=== PATIENT | female | born 1940 | race Caucasian/White ===

== ENCOUNTER 2019-03-19 09:54 | Inpatient (IN) ==
--- NOTE | 2019-02-14 10:15 | PAT Medication Instructions ---
Medication Instructions Date of Service February 14, 2019 Home Medications Medication Instructions Recorded sulfamethoxazole 800 1 tab PO DAILY 30 Days #30 tab 01/22/19 mg-trimethoprim 160 mg tablet albuterol sulfate 90 mcg/actuation 1 puffs INH Q4H PRN #1 ea 02/13/19 breath activated powder inhaler prednisone 10 mg tablet See Rx Instructions .ROUTE 02/13/19 .COMPLEX #21 tab triamcinolone acetonide 55 mcg nasal spray aerosol 2 sprays INTRANASAL DAILY cetirizine 10 mg capsule 10 mg PO HS PRN cyclosporine 0.05 % eye drops in a dropperette 1 drops OP Q12H glucosamine-chondroitin 250 mg-200 mg tablet 2 tab PO DAILY polyethylene glycol 3350 17 gram/dose oral powder 17 gm PO DAILY sulfamethoxazole 800 mg-trimethoprim 160 mg tablet 1 tab PO DAILY levothyroxine 25 mcg PO QAM albuterol sulfate 90 mcg/actuation breath activated powder inhaler 1 puffs INH Q4H PRN prednisone 10 mg tablet See Rx Instructions .ROUTE .COMPLEX Continue as directed sulfamethoxazole 800 mg-trimethoprim 160 mg tablet 1 tab PO DAILY prednisone 10 mg tablet See Rx Instructions .ROUTE .COMPLEX STOP taking 2 weeks before surgery (or as soon as possible if surgery is within 2 weeks) glucosamine-chondroitin 250 mg-200 mg tablet 2 tab PO DAILY DO NOT take the morning of surgery polyethylene glycol 3350 17 gram/dose oral powder 17 gm PO DAILY Take morning of surgery With a small sip of water, OTHERWISE NOTHING TO EAT OR DRINK AFTER MIDNIGHT: triamcinolone acetonide 55 mcg nasal spray aerosol 2 sprays INTRANASAL DAILY cyclosporine 0.05 % eye drops in a dropperette 1 drops OP Q12H levothyroxine 25 mcg PO QAM albuterol sulfate 90 mcg/actuation breath activated powder inhaler 1 puffs INH Q4H PRN (if needed) Take evening before surgery triamcinolone acetonide 55 mcg nasal spray aerosol 2 sprays INTRANASAL DAILY cetirizine 10 mg capsule 10 mg PO HS PRN (if needed) cyclosporine 0.05 % eye drops in a dropperette 1 drops OP Q12H albuterol sulfate 90 mcg/actuation breath activated powder inhaler 1 puffs INH Q4H PRN (if needed) Other Notes If you have any questions please call us at [phone] or [phone] or [phone] or [phone]
--- NOTE | 2019-02-14 11:15 | Anesthesiology Consultation ---
Date of Service February 14, 2019 Assessment & Plan (1) Encounter for pre-operative examination: PCP: 02/13/19: viral bronchitis- treating with prednisone taper/bactrim/inhaler PRN. Patient having CXR done with preop testing ([facility] 02/14). Chart Review Chart Review: Pending: Refer to Additional Notes / Consult section (pending preop testing (labs, CXR)) and Patient seen in Pre Admission Testing Teaching & Discussion Pre-Anesthesia Teaching/Discussion Notes: Instructed NPO after midnight before surgery,except medications with 15 cc of water. Medication instructions pr ovided according to the PAT guidelines. History Surgery Operation Date: 03/19/19 10:40 Proposed Procedures p Left Total Knee Arthroplasty - Austin Washington MD Height/Weight Height: 5 ft Weight: 59.9 kg Allergies Allergy/AdvReac Type Severity Reaction Status Date / Time mold Allergy Unknown STUFFY NOSE Verified 02/13/19 15:43 Penicillins Allergy Unknown Hives Verified 02/13/19 15:43 clarithromycin AdvReac Unknown GOT AWAKE Verified 02/14/19 11:25 DURING NIGHT, TERRIBLE TASTE IN MOUTH morphine AdvReac Unknown N/V Verified 02/13/19 15:43 tree and shrub pollen AdvReac Unknown STUFFY NOSE Verified 02/14/19 11:25 BANDAID Allergy Unknown SEE Uncoded 02/13/19 15:43 COMMENTS BELOW Medications Home Medications Medication Instructions Recorded Confirmed Last Taken triamcinolone acetonide 55 mcg 2 sprays INTRANASAL DAILY ml 01/17/19 02/13/19 Unknown nasal spray aerosol cetirizine 10 mg capsule 10 mg PO HS PRN cap 01/22/19 02/13/19 Unknown cyclosporine 0.05 % eye drops in a 1 drops OP Q12H 01/22/19 02/13/19 Unknown dropperette glucosamine-chondroitin 250 mg-200 2 tab PO DAILY tab 01/22/19 02/13/19 Unknown mg tablet polyethylene glycol 3350 17 17 gm PO DAILY gm 01/22/19 02/13/19 Unknown gram/dose oral powder sulfamethoxazole 800 1 tab PO DAILY 30 Days #30 tab 01/22/19 02/13/19 Unknown mg-trimethoprim 160 mg tablet levothyroxine 25 mcg PO QAM 02/11/19 02/13/19 02/11/19 albuterol sulfate 90 mcg/actuation 1 puffs INH Q4H PRN #1 ea 02/13/19 02/13/19 Unknown breath activated powder inhaler prednisone 10 mg tablet See Rx Instructions .ROUTE 02/13/19 02/13/19 Unknown .COMPLEX #21 tab Past Medical History Medical History Balance problem since left ear hearing loss Borderline high cholesterol Constipation Deaf left ear, transmitter History of UTI Recurrent UTI- symptoms resolved; patient on prophylactic Bactrim Hypothyroid Kidney stone Lichen planus HX Prolapse of bladder Vertigo occasional since left ear hearing loss Exercise / Class Metabolic Activity III < 4 Walking/Shop/Light housework Past Family History Family History Father Family history of diabetes mellitus (DM) Grandmother Family history of diabetes mellitus (DM) Past Surgical History Surgical History History of colonoscopy with polypectomy History of hand surgery LEFT HAND TRIGGER FINGER, CYST REMOVED RIGHT MIDDLE FINGER History of tonsillectomy History of vaginal hysterectomy History of vascular surgery LLE VEIN STRIPPING/REMOVAL Past Anesthesia History No Hx of Anesthesia Complications and No Family Hx of Anesthesia Complications History of PONV No Hx of PONV and No Hx of Motion Sickness Social History Smoking Status: Never smoker Do You Dip or Chew Tobacco: No Hx Alcohol Use: Yes Alcohol type: wine alcohol intake frequency: other Alcohol Intake Frequency Comment: ONCE A WEEK WITH DINNER Hx Substance Use: No substance use type: does not use Review of Systems Current bronchitis with coughing improved. Patient denies chest pain, shortness of breath, wheezing, palpitations. Physical Exam Vital Signs VITALS BP 117/72 P 69 TEMP 98.3 SP02 96%RA RESP 18 PHYSICAL Full neck and c-spine range of motion. Full TMJ range of motion. TMD 3 finger breaths Mallampati Score 3 Dentition: intact Lungs: clear throughout to auscultation Cardiac: regular rate and rhythm, no murmurs noted Spine: normal Carotid arteries: negative bruit Extremities: no edema Testing Laboratory Results 01/22/19 WBC 5.72 H/H 12.4/37.9 PLATELETS 309 SODIUM 142 POTASSIUM 3.9 CHLORIDE 106 CO2 32 BUN 18 CREATININE 0.9 GLUCOSE 83 Electrocardiogram Date: 01/22/19 SR at 65bpm.
--- NOTE | 2019-02-14 12:13 | XRay Report ---
XR chest Pre-admission PA/Lat CLINICAL HISTORY: 78 years-old Female presenting with preoperative assessment, recent diagnosis of br onchitis. TECHNIQUE: PA and lateral views of the chest were obtained. COMPARISON: None. FINDINGS: Atherosclerosis of the aortic arch. Cardiac silhouette normal in size. Lungs are hyperinflated. No fo tete opacity. No pleural effusion or pneumothorax. Degenerative changes of the thoracic spine. Upper a bdomen normal. IMPRESSION: 1. Hyperinflation could suggest underlying emphysema or other chronic obstructive lung disease versu s exuberant inspiratory effort. No focal infiltrate to suggest pneumonia. Electronically signed by: Demetrio Gardner M.D. 02/14/2019 12:12 PM
[2019-02-14 13:25] LABS: Partial Thromboplastin Ratio 1.1; Prothrombin Time 9.8 Seconds (9.0-12.0)
--- NOTE | 2019-03-17 15:52 | History and Physical Report ---
DATE OF ADMISSION: 03/19/2019 CHIEF COMPLAINT: Bilateral knee pain and discomfort, left side greater than the right. HISTORY OF PRESENT ILLNESS: A 78-year-old female who I have been following for her knee arthritis for about 10 years. She has become more debilitated by her knee pain and discomfort. She has had episodes where it catches and locks on her and she has difficulty walking for quite some time. She has been through extensive conservative treatment in the past 10-15 years with injections and medicines which have become less successful. Pain is mostly medial, but some global pain. The left knee bothers more than the right. She has nighttime pain. She would like to have her left knee replaced. PAST MEDICAL HISTORY: 1. Elevated cholesterol. 2. Hypothyroidism. 3. Osteoarthritis. 4. Gastroesophageal reflux disease. 5. Hiatal hernia. 6. Kidney stones. PAST SURGICAL HISTORY: Include: 1. Hysterectomy. 2. Tonsillectomy. 3. Left vein surgery. ALLERGIES: PENICILLIN WHICH CAUSES HIVES. No respiratory problems. ALSO DESCRIBES ALLERGIES TO MORPHINE, WHICH CAUSES NAUSEA. CURRENT MEDICINES: Include: 1. Levothyroxine 25 mcg a day. 2. Restasis. 3. Bactrim for her UTI. 4. Plaquenil 200 mg twice a day. SOCIAL HISTORY: A 78-year-old female. She is from [place]. She does not smoke. 3-4 drinks per week. FAMILY HISTORY: Noncontributory. REVIEW OF HISTORY: Negative for diabetes, neurologic problems, vascular problems or bleeding disorders. Denies any chest pain or shortness of breath. No history of DVT or PE. No known bleeding problems. PHYSICAL EXAMINATION: GENERAL: Shows a healthy, pleasant middle-aged female. Looks younger than her stated age. HEENT: Benign. NECK: Supple, no lymphadenopathy. LUNGS: Clear to auscultation. HEART: Has a regular rate and rhythm. ABDOMEN: Soft, nontender, nondistended. EXTREMITIES: Grossly neurovascularly intact except as follows: Examination of the knee reveals patient walks independently. She has a fairly minimal limp. She has got fairly neutral slight varus alignment to her left knee. She has got bony hypertrophy medially. She is tender over the medial joint line. Small knee effusion. Range of motion is 5 degrees short of full extension to 125 degrees of flexion. There is no clinical instability. No pain with hip motion. X-RAYS: Left knee reviewed. Shows advanced medial compartment arthritis. She has got complete loss of medial joint space. She has subchondral sclerosis. She has osteophytes off the medial femoral condyle and medial tibial plateau. ASSESSMENT: A 78-year-old female with advanced left knee degenerative joint disease. She has failed conservative treatment. She would like to proceed with a left knee replacement. PLAN: We will take her to the operating room and do a left total knee replacement. The risks and benefits of this procedure were explained to the patient and include but not limited to DVT, PE, , infection, neurological injury, vascular injury, bleeding problem, pain, limited range of motion, stiffness, failure to relieve her symptoms, incomplete relief of symptoms, need for further surgery in future, fracture, leg length inequality, nerve palsy, persistent pain, incomplete relief of symptoms, etc. The patient understands and desires to proceed. Informed consent was obtained. As far as discharge plans, she is planning to be discharged to home likely using [facility] home health program.
[~2019-03-19 09:54] MED LIST: ACETAMINOPHEN 500 MG TAB PO SCH; BUPIVACAINE 0.5 % 5 MG/1 ML PF 10ML VIAL ONE; BUPIVACAINE LIPOSOME/PF 266 MG, BUPIVACAINE/EPINEPHRINE 50 ML, SODIUM CHLORIDE 0.9% 30 ... INFIL SCH; CEFAZOLIN 2000MG 2,000 MG/15 ML SYR IV SCH; FAMOTIDINE 20 MG TAB PO SCH; GABAPENTIN 300 MG CAP PO SCH; LR 15ML/HR IV SCH; LR 60ML/HR IV SCH; METOCLOPRAMIDE HCL 10 MG TABLET PO SCH; ROPIVACAINE 0.5% 5 MG/ML 30 ML VIAL ONE; TRANEXAMIC ACID 1,000 MG **IV Intra-op IV SCH; [UNRECOGNIZED DRUG - REMARK] SCH
--- NOTE | 2019-03-19 10:42 | History & Physical Bridge Note ---
Date of Service March 19, 2019 History & Physical Bridge Note I have examined the patient, reviewed the History & Physical and in the interval since the performance of the History & Physical I have noted the following changes of clinical significance: Patient with Right Knee DJD as well and wants steroid injection into right knee while under anesthesia. Will add to consent and preform in OR.
[2019-03-19] MEDS ORDERED: SODIUM CHLORIDE 0.9% PF 50 ML VIAL ONE (12:05)
[2019-03-19] MEDS ORDERED: BUPIVACAINE/EPINEPHRINE 0.25% 1:200,000 30 ML VIAL ONE (12:05)
[2019-03-19] MEDS ORDERED: BUPIVACAINE LIPOSOME 1.3% 266 MG/20 ML VIAL ONE (12:06)
[2019-03-19] MEDS ORDERED: EPINEPHrine INJ 1 MG/ML AMP ONE (12:06)
[2019-03-19] MEDS ORDERED: BACITRACIN INJ 50,000 UNIT VIAL ONE (12:06)
[2019-03-19] MEDS ORDERED: BUPIVACAINE 0.25% 30 ML VIAL ONE (12:06)
[2019-03-19] MEDS ORDERED: MIDAZOLAM HCL 1 MG/ML 2ML VIAL ONE ×2 (12:17→13:03)
[2019-03-19] MEDS ORDERED: fentaNYL citrate 100 MCG/2 ML VIAL ONE (12:17)
[2019-03-19] MEDS ORDERED: BUPIVACAINE 0.5 % 5 MG/1 ML MPF 30ML VIAL ONE (12:35)
[2019-03-19] MEDS ORDERED: HYDROmorphone INJ 1 MG/ML SYRINGE IV PRN (13:00)
[2019-03-19] MEDS ORDERED: ATROPINE SULFATE 0.1 MG/ML 10ML SYR IV PRN (13:00)
[2019-03-19] MEDS ORDERED: ONDANSETRON INJ 2 MG/ML 2 ML VIAL IV PRN ×2 (13:00→15:28)
[2019-03-19] MEDS ORDERED: KETOROLAC 30 MG/ML VIAL IV PRN (13:00)
[2019-03-19] MEDS ORDERED: ePHEDrine sulfate 50 MG/ML AMP IV PRN (13:00)
[2019-03-19] MEDS ORDERED: PROPOFOL IV EMULSION 10 MG/ML 20 ML VIAL IV ONE (13:04)
[2019-03-19] MEDS ORDERED: PHENYLEPHRINE 100MCG/ML 5ML SYR ONE (14:30)
[2019-03-19] MEDS ORDERED: ePHEDrine sulfate 50 MG/ML SYR ONE (14:30)
--- NOTE | 2019-03-19 14:33 | Post Operative Brief Note ---
PG Immediate Post Op with CF Date of Surgery March 19, 2019 Pre & Post Diagnosis Operation Date: 03/19/19 12:30 Pre-Op Diagnosis: Bilateral Knee Degenerative Joint Disease Post-Op Diagnosis: Bilateral Knee Degenerative Joint Disease I identified the patient and participated in the time-out.: Yes Procedure Operation Date: 03/19/19 12:30 Actual Procedures p Left Total Knee Arthroplasty, Right Knee Injection(Left) - Austin Washington MD Surgeon Austin Washington MD Oil Expeller Isaiah, PAC Estimated Blood Loss 50 Findings Consistent with Post-Op Diagnosis Fluids 1500 cc Specimens Specimen Description: Permanent Solution: A.) Left Knee Bone and Tissue Drains Jose Catheter (patent; clean; dry; intact) Anesthesia Type Spinal MAC Complications none Disposition Accompanied Patient To Recovery: No Disposition: Recovery Room
--- NOTE | 2019-03-19 14:57 | XRay Report ---
XR knee LT 1 or 2V routine CLINICAL HISTORY: Surgical Post Op postoperative evaluation COMPARISON: None. DISCUSSION: Anatomic alignment posttotal left knee arthroplasty. Could contact between prosthetic and underlying bone. Expected postoperative soft tissue change IMPRESSION: Anatomic alignment posttotal left knee arthroplasty. The above report was generated using voice recognition software. It may contain grammatical, syntax or spelling errors. Electronically signed by: Karsten Duffy M.D. 03/19/2019 2:56 PM
--- NOTE | 2019-03-19 15:20 | Anesthesiology Progress Note ---
Date of Service March 19, 2019 Anesthesia Post Procedure Vital Signs Vital Signs: Temp Pulse Pulse Resp BP Pulse Ox 03/19/19 15:15 36.9 C 78 16 125/61 99 03/19/19 15:05 36.9 C 78 16 130/61 99 03/19/19 14:55 81 16 125/66 98 03/19/19 14:45 83 16 133/61 98 03/19/19 14:38 37.1 C 82 16 134/62 99 03/19/19 10:20 36.5 C 70 18 131/65 97 Pain Intensity Left Knee: Pain Intensity: 4 Transfer of Care Handoff Completed per policy Notes Mental Status: alert / awake / arousable and participated in evaluation Patient Amnestic to Procedure: Yes Nausea / Vomiting: adequately controlled Pain: adequately controlled Airway Patency, RR, SpO2: stable & adequate BP & HR: stable & adequate Hydration State: stable & adequate Neuraxial Anesthesia: was administered and sensory block is resolving Anesthetic Complications: no major complications apparent
[2019-03-19] MEDS ORDERED: HYDROmorphone INJ 0.5 MG/0.5 ML SYR IV PRN (15:28)
[2019-03-19] MEDS ORDERED: NALOXONE HCL 0.4 MG/1 ML VIAL/CARP IV PRN (15:28)
[2019-03-19] MEDS ORDERED: METOCLOPRAMIDE HCL INJ 5 MG/ML 2 ML VIAL IV PRN (15:28)
[2019-03-19] MEDS ORDERED: MAGNESIUM HYDROXIDE SUSP 30 ML UDC PO PRN (15:28)
[2019-03-19] MEDS ORDERED: CETIRIZINE HCL 10 MG TABLET PO PRN (15:28)
[2019-03-19] MEDS ORDERED: BISACODYL 10 MG SUPP PR PRN (15:28)
[2019-03-19] MEDS ORDERED: TRAMADOL HCL 50 MG TABLET PO PRN (15:28)
[2019-03-19] MEDS: ASCORBIC ACID 500 MG TAB PO SCH (17:01)
[2019-03-19] MEDS: FERROUS GLUCONATE 324 MG TAB PO SCH (17:02)
[2019-03-19] MEDS: KETOROLAC TROMETHAMINE 15 MG/ML VIAL IV SCH ×2 (17:03→21:02)
[2019-03-19] MEDS: SODIUM CHLORIDE 0.9% 1000ML 1,000 ML IV SCH (18:34)
--- NOTE | 2019-03-19 18:43 | Operative Report ---
DATE OF OPERATION: 03/19/2019 SURGEON: Austin Washington MD. PARTS DELIVERY DRIVER: LEWIS Alva. PREOPERATIVE DIAGNOSIS: Bilateral knee degenerative joint disease. POSTOPERATIVE DIAGNOSIS: Bilateral knee degenerative joint disease. PROCEDURE PERFORMED: 1. Left cemented posterior stabilized total knee arthroplasty. 2. Right knee steroid injection under anesthesia. COMPLICATIONS: None. ESTIMATED BLOOD LOSS: 50 mL. FLUID REPLACEMENT: 1500 mL of crystalloid fluid replacement. TOURNIQUET TIME: 50 minutes at 300 mmHg. ANESTHESIA: Spinal with adductor canal block. DRAINS: None. SPECIMENS: Left knee sent for pathology. OPERATIVE INDICATIONS: The patient is a 78-year-old very active, independent female who has had a long history of bilateral knee pain and discomfort, left side greater than the right. I have been treating her for many years for this problem. The conservative care became less effective over time. It is affecting her quality of life and ability to maintain an independent and active lifestyle. She elected to proceed with left total knee arthroplasty. She also elected to have her right knee injected as she has had some relief from that more recently in the right knee. OPERATIVE FINDINGS: Revealed advanced left knee DJD. 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 Less severe in the patellofemoral compartment and more mild disease laterally. She had a moderate-sized joint effusion. She had osteophytes of the medial femoral condyle and medial tibial plateau. OPERATIVE IMPLANTS: Consisted of: 1. Biomet Vanguard size 62.5 left posterior stabilized femoral component. 2. Biomet size 67 tibial tray. 3. A 10 mm posterior stabilized polyethylene insert. 4. A 28 x 8 all poly patella. OPERATIVE PROCEDURE: The patient was taken to the operating room, identified and placed on the operating table in supine position. All contact areas were appropriately padded. IV antibiotics were provided by anesthesia team. Spinal anesthetic and adductor canal block had been provided in the holding area. Jose catheter was placed in sterile fashion. A left thigh tourniquet was then placed. Attention was first drawn to the right knee. Right knee was prepped with alcohol. 2 mL of Celestone and 8 mL of Marcaine were injected into the right knee in sterile fashion. A gauze pad was placed at the injection site followed by a CAMMY stocking. The left lower extremity was then prepped and draped in usual sterile fashion. The left leg was elevated and exsanguinated with an Esmarch and tourniquet was placed at 300 mmHg. An anterior approach to the left knee was then performed through a longitudinal incision centered over the patella. Sharp dissection was carried out through the subcutaneous tissue down to the level of the extensor mechanism. Medial parapatellar arthrotomy incision was made. Some subperiosteal dissection was carried out medially. The fat pad was resected from beneath the patellar tendon. The lateral patellofemoral ligament was released. The patella was subluxated laterally and the knee was flexed. The osteophytes were taken off the distal femur. The ACL and PCL were then released from the distal femur and the tibia subluxated anteriorly. The external tibial alignment jig was then placed in the anterior face of the tibia and adjusted 14 mm medially. Proximal tibial cut was made to remove about a millimeter or 2 of bone from the most deficient aspect of the medial tibial plateau. Some large osteophytes were taken off medial and posteromedially. The tibia sized to a size 67. Attention was then drawn to the femur. The distal femur was entered with a sharp drill bit. Intramedullary canal was suctioned. A left 5-degree valgus cutting guide was placed. Distal femoral cutting block was pinned in place. Distal femoral cut was made to take an additional 3 mm of bone off the distal femur. The femur was then sized to a size 62.5. We did downsize this slightly. The AP cutting block was pinned parallel to the epicondylar axis, which was 5 degrees of external rotation. The anterior cut, anterior chamfer, posterior cut, posterior chamfer cuts were made. Box cutting guide was placed and adjusted slightly lateral and the box cut was made. The knee was flexed. The remnants of the medial and lateral menisci were excised. The osteophytes were taken off the posterior aspect of the femur. A trial femoral component was placed. Tibial tray was pinned in maximum external rotation and the drill and stem punch were used to create a defect in proximal tibia for the tibial tray. Of note, her bone was quite osteopenic. The knee was then trialled and the 10 mm insert fit most appropriately. Attention was then drawn to the patella. The patella was cleaned of all soft tissues. Patella thickness measured 20 mm in thickness, it was cut down to 13. It was sized to a size 28 patella. Lug holes were drilled for the 28 patella. Lateral osteophytes were removed. Patella button was placed. The knee was taken through a range of motion and the patella tracked nicely with no thumbs test. Attention was then drawn toward placement of permanent components. All trial components were removed. A bone plug was placed in the distal femur to limit blood loss. A double batch of Palacos G cement was mixed. A Biomet Vanguard size 62.5 posterior stabilized femoral component, size 67 tibial tray, 10 mm posterior stabilized polyethylene insert, 28 x 8 all poly patella were then cemented in place. Knee was brought out into full extension until cement hardened. Final cement check was then performed. Pericapsular tissues were injected with a total of 100 mL of combination of 20 mL of Exparel, 30 mL of normal saline, 50 mL of 0.25% Marcaine with epinephrine. The patient did receive 1 gram of tranexamic acid. The tourniquet was then let down for final tourniquet time of 50 minutes. Hemostasis was assured with the use of electrocautery. Extensor mechanism was then closed with a combination of #1 PDS suture and #1 Vicryl suture. The extensor mechanism was checked and found to be intact. The subcutaneous tissue was then closed with #2 Dexon suture in a buried interrupted fashion. Skin was closed with skin stephen. Leg was then cleaned and dried and a sterile dressing of Xeroform, 4 x 4, sterile cast padding and Abdiel bandage were applied. The patient was then transferred to the recovery room in stable conditions. There were no complications. All needle and sponge counts were correct at the end of the operation. I attest to the content of the Intraoperative Record and any orders documented therein. Any exceptions are noted below. MTDD
[2019-03-19] MEDS ORDERED: COUGH DROP (SUGAR FREE) LOZ 24 LOZ/1 BOX BUCCAL PRN (19:43)
[2019-03-19] MEDS ORDERED: TRANEXAMIC ACID 1,000 MG in 0.9 % SODIUM CHLORIDE 100 ML IV SCH (21:00)
[2019-03-19] MEDS ORDERED: SENNA 8.6 MG TAB PO SCH (21:00)
[2019-03-19] MEDS: CEFAZOLIN 1000MG 1,000 MG/7.5 ML SYR IV SCH (21:01)
[2019-03-19] MEDS: cycloSPORINE (RESTASIS) OP SCH (21:02)
[2019-03-19] MEDS: DOCUSATE SODIUM 100 MG CAP PO SCH (21:04)
[2019-03-19] MEDS: ACETAMINOPHEN 500 MG TAB PO SCH (21:04)
[2019-03-20] MEDS: SODIUM CHLORIDE 0.9% 1000ML 1,000 ML IV SCH (03:54)
[2019-03-20] MEDS: KETOROLAC TROMETHAMINE 15 MG/ML VIAL IV SCH ×2 (03:55→10:14)
[2019-03-20] MEDS: CEFAZOLIN 1000MG 1,000 MG/7.5 ML SYR IV SCH (03:55)
[2019-03-20 05:28] LABS: Hematocrit (blood only) 35.3 % (37-47); Hemoglobin 11.9 g/dL (12.0-16.0); Mean Corpuscular Hemoglobin 30.4 pg (25-34); Mean Corpuscular Hgb Conc 33.7 g/dL (32-36); Mean Corpuscular Volume 90.3 fL (80-100); Platelet Count 257 K/uL (130-400); RDW Coefficient of Variation 13.4 % (11.5-14.5); RDW Standard Deviation 44.1 fL (36.4-46.3); Red Blood Count 3.91 M/uL (4.2-5.4); White Blood Count 12.24 K/uL (4.8-10.8)
[2019-03-20] MEDS: ACETAMINOPHEN 500 MG TAB PO SCH (05:30)
[2019-03-20 05:56] LABS: BUN Creatinine Ratio 15.8 (10-20); Calcium 8.9 mg/dl (8.5-10.1); Est GFR (African American) 60.7; Est GFR (Non-African American) 52.4
[2019-03-20] MEDS ORDERED: LEVOTHYROXINE SODIUM 25 MCG TABLET PO SCH (06:30)
[2019-03-20] MEDS: FERROUS GLUCONATE 324 MG TAB PO SCH (08:38)
[2019-03-20] MEDS: DOCUSATE SODIUM 100 MG CAP PO SCH (08:38)
[2019-03-20] MEDS: ASCORBIC ACID 500 MG TAB PO SCH (08:38)
[2019-03-20] MEDS: cycloSPORINE (RESTASIS) OP SCH (08:40)
[2019-03-20] MEDS ORDERED: POLYETHYLENE (MIRALAX) 17 GM PACK PO SCH (09:00)
[2019-03-20] MEDS ORDERED: TRIAMCINOLONE ACET NASAL SPRAY 10.8ML BTL NAE SCH (09:00)
[2019-03-20] MEDS ORDERED: MULTIVITAMIN TAB PO SCH (09:00)
--- NOTE | 2019-03-20 12:36 | Progress Note ---
DATE: 03/20/2019 SUBJECTIVE: A 78-year-old white female postop day #1 from a left knee replacement and a right knee injection. She is doing quite well. Pain is controlled. No chest pain or shortness of breath. Not feeling dizzy or lightheaded. She would really like to go home. OBJECTIVE: VITAL SIGNS: Temperature is 36.9. Vital signs stable. GENERAL: Shows a pleasant elderly female. She is sitting up in bed and looks quite comfortable. LUNGS: Clear to auscultation. HEART: Has regular rate and rhythm. ABDOMEN: Soft, nontender, nondistended. EXTREMITIES: Grossly neurovascularly intact except as follows. Examination of the left leg reveals the dressing to be clean, dry and intact. Leg is well aligned. She can do an excellent straight leg raise. She can dorsiflex and plantarflex her foot appropriately. She is neurologically intact. LABORATORY DATA: Hemoglobin is 11.9. Hematocrit 35.3. White cell count 12.24. Electrolytes are stable. ASSESSMENT: A 78-year-old white female postop day #1 from left knee replacement, doing remarkably well. Pain seems to be controlled. She seems to be getting around quite well. She also had a right knee injection. PLAN: 1. DVT prophylaxis including thigh-high TEDs, SCDs, and aspirin twice a day. 2. PT/OT. Weight bear as tolerated. Left total knee protocol. 3. Pain control, doing well with current pain regimen. We are going to try to stick to Tylenol as much as possible and limit narcotics. 4. Disposition: She is planning to be discharged home with home health. We will see how therapy goes today, but she is open to go home after therapy.
--- NOTE | 2019-03-22 08:45 | Discharge Summary ---
DATE OF ADMISSION: 03/19/2019 DATE OF DISCHARGE: 03/20/2019 ADMITTING PHYSICIAN AND SURGEON: Dr. Austin Washington. ADMITTING DIAGNOSIS: Bilateral knee degenerative joint disease. PROCEDURE PERFORMED: 1. Left total knee arthroplasty. 2. Right knee injection. SECONDARY DIAGNOSES: Include elevated cholesterol, hypothyroidism, osteoarthritis, gastroesophageal reflux disease, hiatal hernia and kidney stones. CONSULTS: None obtained. HISTORY AND PHYSICAL EXAMINATION: Well documented in the patient's chart. HOSPITAL COURSE: The patient was admitted on 03/19/2019, underwent total knee arthroplasty as well as a knee injection, tolerated the procedure well. There were no complications. She was transferred to the PACU postoperatively and later to the orthopedic floor for further care. She was given Ancef for antibiotic prophylaxis, CAMMY stockings, SCDs and aspirin for DVT prophylaxis. Hemoglobin, hematocrit and vital signs were monitored during her hospital stay and remained stable, did not require any blood transfusions. There were no complications. On postoperative day 1, she was tolerating a regular diet, pain was controlled with oral pain medicine. She was participating in physical therapy. On postop day 1, she was discharged home, set up with home health services. She was given printed discharge instructions as well as new prescriptions for extra strength Tylenol and tramadol. Continue her home medications, continue physical therapies, weightbearing as tolerated, CAMMY stockings. Follow up approximately 2 weeks postop or sooner if there are any problems or concerns.
== END 2019-03-20 14:45 | disposition home health service (06) | DRG 470 ==
LOC: ASU 09:54 → 3E 14:37

== ENCOUNTER 2023-06-06 09:17 | Observation (INO) ==
--- NOTE | 2023-04-27 12:39 | PAT Medication Instructions ---
Medication Instructions Date of Service April 27, 2023 Home Medications Medication Instructions Recorded fluocinonide 0.05 % topical cream 1 applic topical BID PRN rash #15 01/07/22 grams fluocinonide 0.05 % topical gel 1 applic topical BID PRN itching 01/07/22 #15 grams levothyroxine 25 mcg tablet 25 mcg PO QAM #90 tabs 04/22/22 famotidine 20 mg tablet 20 mg PO BID #180 tabs 03/13/23 glucosamine-chondroitin 250 mg-200 mg tablet (Osteo Bi-Flex) 2 tab PO QDL olopatadine 0.2 % eye drops 1 drp ophthalmic (eye) QPM fluocinonide 0.05 % topical cream 1 applic topical BID PRN rash fluocinonide 0.05 % topical gel 1 applic topical BID PRN itching levothyroxine 25 mcg tablet 25 mcg PO QAM fluticasone propionate 50 mcg/actuation nasal spray,suspension (Allergy Relief (fluticasone)) 2 spray intranasal DAILY PRN Congestion famotidine 20 mg tablet 20 mg PO BID azelastine 137 mcg (0.1 %) nasal spray aerosol 137 mcg intranasal ONCE PRN Congestion carboxymethylcellulose 0.5 %-glycerin 0.9 % eye drops (Refresh Relieva) 1 drp op hthalmic (eye) BID PRN Dry Eye(S) STOP taking 2 weeks before surgery (or as soon as possible if surgery is within 2 weeks) glucosamine-chondroitin 250 mg-200 mg tablet (Osteo Bi-Flex) 2 tab PO QDL STOP taking 24 hours before surgery fluocinonide 0.05 % topical cream 1 applic topical BID PRN rash fluocinonide 0.05 % topical gel 1 applic topical BID PRN itching Take morning of surgery With a small sip of water, OTHERWISE NOTHING TO EAT OR DRINK AFTER MIDNIGHT: levothyroxine 25 mcg tablet 25 mcg PO QAM fluticasone propionate 50 mcg/actuation nasal spray,suspension (Allergy Relief (fluticasone)) 2 spray intranasal DAILY PRN Congestion (if needed) famotidine 20 mg tablet 20 mg PO BID azelastine 137 mcg (0.1 %) nasal spray aerosol 137 mcg intranasal ONCE PRN Congestion (if needed) carboxymethylcellulose 0.5 %-glycerin 0.9 % eye drops (Refresh Relieva) 1 drp ophthalmic (eye) BID PRN Dry Eye(S) (if needed) Take evening before surgery olopatadine 0.2 % eye drops 1 drp ophthalmic (eye) QPM fluticasone propionate 50 mcg/actuation nasal spray,suspension (Allergy Relief (fluticasone)) 2 spray intranasal DAILY PRN Congestion (if needed) famotidine 20 mg tablet 20 mg PO BID azelastine 137 mcg (0.1 %) nasal spray aerosol 137 mcg intranasal ONCE PRN Congestion (if needed) carboxymethylcellulose 0.5 %-glycerin 0.9 % eye drops (Refresh Relieva) 1 drp ophthalmic (eye) BID PRN Dry Eye(S) (if needed) Other Notes If you have any questions please call us at [phone] or [phone] or [phone] or [phone]
--- NOTE | 2023-05-03 13:32 | Anesthesiology Consultation ---
Date of Service May 03, 2023 Assessment & Plan (1) Encounter for pre-operative examination: - Infectious disease screening: Per assessment on 05/03/23: No known infectious disease contacts or current infectious disease symptoms. No noted recent Covid positive test result. - Outpatient joint assessment: Pt currently scheduled for inpatient pathway. If surgeon requests review for outpatient joint pathway, patient is not recommended candidate for outpatient joint program from anesthesia standpoint. - S/P Left TKA, right knee injection (03/19/19): SAB at L3-4 + PNB at [facility] - PCP visit (04/13/23 [place]): "she will have an appt with urogyn for follow up.. she is to continue with her current meds.. she is to have her pre op testing and we will get her cleared after her studies.. patient in for follow up. she has been doing well.. she is scheduled for her right knee replacement on 06/[address] [place]. her pre op testing is scheduled. she will need clearance.. she is not having any chest pain or sob. no lightheadedness or dizziness.. her bowels are moving. she does take miralax as needed. no melena or hematochezia. she is still having some urinary leakage. she was to see [facility] and would like to go back there. no dysuria or hematuria." > Workload message sent to PCP regarding clearance- Awaiting response. Chart Review Chart Review: Patient seen in Pre Admission Testing Teaching & Discussion Pre-Anesthesia Teaching/Discussion Notes: Instructed NPO after midnight before surgery,except medications with 15 cc of water. Medication instructions provided according to the PAT guidelines. History Surgery Operation Date: 06/06/23 09:10 Proposed Procedures p Right Total Knee Arthroplasty - Austin Washington MD Height/Weight Height: 5 ft 1 in Weight: 61.1 kg Allergies Allergy/AdvReac Type Severity Reaction Status Date / Time amoxicillin [From Augmentin] Allergy Mild Hives Verified 04/27/23 11:22 clavulanic acid Allergy Mild Hives Verified 04/27/23 11:22 [From Augmentin] mold Allergy Unknown Congestion Verified 04/27/23 12:03 trimethoprim [From Bactrim] Allergy Unknown Kidney Verified 04/27/23 12:03 failure droperidol AdvReac Severe Hallucinati Verified 04/27/23 12:03 ons Sulfa (Sulfonamide AdvReac Severe Kidney Verified 04/27/23 12:03 Antibiotics) failure clarithromycin AdvReac Unknown Bad taste Verified 04/27/23 12:03 in mouth, "Got awake during night" morphine AdvReac Unknown N/V Verified 04/27/23 11:22 NSAIDS (Non-Steroidal AdvReac Unknown Caution Verified 04/27/23 12:03 Anti-Inflamma r/t "kidney damage" sulfamethoxazole AdvReac Unknown Kidney Verified 04/27/23 12:03 [From Bactrim] failure tree and shrub pollen AdvReac Unknown Congestion Verified 04/27/23 12:03 Medications Home Medications Medication Instructions Recorded Confirmed Last Taken glucosamine-chondroitin 250 mg-200 2 tab PO QDL 01/22/19 04/27/23 11/24/21 mg tablet (Osteo Bi-Flex) olopatadine 0.2 % eye drops 1 drp ophthalmic (eye) QPM 05/18/21 04/27/23 Unknown fluocinonide 0.05 % topical cream 1 applic topical BID PRN rash #15 01/07/22 04/27/23 Unknown grams fluocinonide 0.05 % topical gel 1 applic topical BID PRN itching 01/07/22 04/27/23 Unknown #15 grams levothyroxine 25 mcg tablet 25 mcg PO QAM #90 tabs 04/22/22 04/27/23 Unknown fluticasone propionate 50 2 spray intranasal DAILY PRN 08/09/22 04/27/23 Unknown mcg/actuation nasal Congestion spray,suspension (Allergy Relief (fluticasone)) famotidine 20 mg tablet 20 mg PO BID #180 tabs 03/13/23 04/27/23 Unknown azelastine 137 mcg (0.1 %) nasal 137 mcg intranasal ONCE PRN 04/13/23 04/27/23 Unknown spray aerosol Congestion carboxymethylcellulose 0.5 1 drp ophthalmic (eye) BID PRN Dry 04/13/23 04/27/23 Unknown %-glycerin 0.9 % eye drops Eye(S) (Refresh Relieva) Past Medical History Medical History Leukopenia Trochanteric bursitis, right hip Dry eye Liver cyst CT Abd/Pelvis 12/2022: Stable "simple appearing" right hepatic lobe cyst 4cm (stable since 2019) + additional 8mm medial left hepatic lobe Osteoarthritis Kidney problem Told "one kidney very small" Right knee DJD Ganglion, left hand GERD (gastroesophageal reflux disease) Posterior tibial tendon dysfunction, right Excessive salivation Occasional, felt r/t lichen planus per patient Renal cyst Per records DARLENE (acute kidney injury) 2018, felt to be r/t 6 weeks of ASA + Sulfa Antibiotic treatment s/p Left TKA Continues to follow [facility] for kidney care annual/Dr. Orozco Prolapse of bladder Occasional urinary incontinence Vertigo Occasional (since left ear hearing loss) Balance problem since left ear hearing loss Deaf left ear, transmitter Kidney stone hx Lichen planus Hypothyroid Borderline high cholesterol DJD (degenerative joint disease) of knee Exercise / Class Metabolic Activity III < 4 Walking/Shop/Light housework Past Family History Family History Father History of angioplasty Family history of diabetes mellitus (DM) Grandmother , 79 Family history of diabetes mellitus (DM) Myocardial infarction Mother Dementia Other No family history of adverse response to anesthesia Denies family history of Ovarian cancer Prostate cancer Breast cancer Colorectal cancer Past Surgical History Surgical History History of removal of cyst History of cataract surgery R/L History of cystoscopy Status post biopsy of kidney History of cystocele 2019 History of esophagogastroduodenoscopy (EGD) S/P total knee arthroplasty Left TKA, right knee injection (03/19/19): SAB at L3-4 + PNB at [facility] History of vascular surgery LLE vein stripping/removal History of hand surgery Left hand trigger finger, cyst removal right middle finger History of vaginal hysterectomy History of tonsillectomy History of colonoscopy with polypectomy Past Anesthesia History No Hx of Anesthesia Complications and No Family Hx of Anesthesia Complications History of PONV No Hx of PONV and No Hx of Motion Sickness Social History Smoking Status: Never smoker Do You Dip or Chew Tobacco: No Hx Alcohol Use: No Hx Substance Use: No substance use type: does not use Review of Systems Patient denies chest pain, shortness of breath, fever, chills, cough, wheezing, palpitations. Physical Exam Vital Signs VITALS BP 121/67 P 69 TEMP 98.7 SP02 95%RA RESP 18 PHYSICAL Full cervical extension range of motion. Full TMJ range of motion. TMD 3 finger breaths Mallampati Score 3 Dentition: intact Lungs: clear throughout to auscultation Cardiac: regular rate and rhythm, no murmurs noted Spine: normal Carotid arteries: negative bruit Extremities: no LE edema Lab Results Anesthesia Preop Results Results Anesthesia Widget: WBC 4.46 K/ul (4.8-10.8) L 05/03/23 Hgb 12.1 g/dl (12.0-16.0) 05/03/23 Hct 36.1 % (37.0-47.0) L 05/03/23 Plt 246 K/uL (130-400) 05/03/23 Na 140 mmol/L (136-145) 05/03/23 K 3.9 mmol/L (3.5-5.1) 05/03/23 Cl 108 mmol/L (98-107) H 05/03/23 CO2 28 mmol/L (21-32) 05/03/23 BUN 20 mg/dl (6-23) 05/03/23 Creat 0.77 mg/dl (0.6-1.2) 05/03/23 Glucose Level 86 mg/dl (70-99(Fasting)) 05/03/23 PT 10.5 Seconds (9.0-12.0) 05/03/23 PTT 30 Seconds (21-31) 05/03/23 INR 1.0 (0.9-1.1) 05/03/23 Blood Type O Positive 05/03/23 Antibody Screen NEGATIVE 05/03/23 Testing Electrocardiogram Date: 09/23/22 NSR at 62bpm. PRWP. No significant change compared to 05/11/2019 per renewable energy consultant comparison. Echo done 05/13/19* Chest X-Ray Date: 05/03/23 FINDINGS: No lines and tubes are seen. The cardiomediastinal silhouette is normal. The lungs are clear. No evidence of pleural effusion or pneumothorax. IMPRESSION: No acute chest disease. Echocardiogram Date: 05/13/19 LVEF 61%. LV wall motion is normal. Nondilated cardiac chambers. Mild to moderate MR/TR. Mild [place]. Proximal IVC is dilated. PASP 43.3 mmHg. Mild pulmonary hypertension.
--- NOTE | 2023-06-04 11:35 | History & Physical Report ---
Date of Service June 04, 2023 Assessment & Plan (1) Right knee DJD: 82-year-old female now over 4 years out from left knee replacement with advanced right knee DJD. She has failed conservative treatment. She like to have her knee fixed. She also has some posterior tibial tendon insufficiency on the side which probably makes her valgus deformity even worse. Plan: Orgran taken to the operating do a right knee replacement. The risks Mente this procedure plan the patient include but not limited to DVT, PE, , infection, neurovascular injury, bleeding problems, limited motion, stiffness, failure to relieve her symptoms, incomplete relief of symptoms excetra. The patient understands and desires to proceed. Informed consent obtained. She is planned to be discharged home using [facility] home health program. Her daughter who is a candle pourer from [place] is going to come and stay with her. Will plan on DVT prophylaxis including aspirin, teds, and SCDs. (2) H/O total knee replacement: History of Present Illness Chief Complaint: Persistent right knee pain and discomfort. Primary Care Provider: James Cadet DO . Patient is an 82-year-old female who who now 4 years out or so out from a left knee replacement with persistent right knee pain discomfort. She had a long history of knee problems had her left knee replaced 4 years ago and done well from that. She continues to be bothered by right knee pain discomfort describes gotten worse over time. She developed more of a deformity to her knee. Occasionally gives out on her. She got pain all the time. Increased with weightbearing. She is ready to have her right knee fixed. Allergies Allergy/AdvReac Type Severity Reaction Status Date / Time amoxicillin [From Augmentin] Allergy Mild Hives Verified 04/27/23 11:22 clavulanic acid Allergy Mild Hives Verified 04/27/23 11:22 [From Augmentin] mold Allergy Unknown Congestion Verified 04/27/23 12:03 trimethoprim [From Bactrim] Allergy Unknown Kidney Verified 04/27/23 12:03 failure droperidol AdvReac Severe Hallucinati Verified 04/27/23 12:03 ons Sulfa (Sulfonamide AdvReac Severe Kidney Verified 04/27/23 12:03 Antibiotics) failure clarithromycin AdvReac Unknown Bad taste Verified 04/27/23 12:03 in mouth, "Got awake during night" morphine AdvReac Unknown N/V Verified 04/27/23 11:22 NSAIDS (Non-Steroidal AdvReac Unknown Caution Verified 04/27/23 12:03 Anti-Inflamma r/t "kidney damage" sulfamethoxazole AdvReac Unknown Kidney Verified 04/27/23 12:03 [From Bactrim] failure tree and shrub pollen AdvReac Unknown Congestion Verified 04/27/23 12:03 Home Medications Medication Instructions Recorded Confirmed Type glucosamine-chondroitin 250 mg-200 2 tab PO QDL 01/22/19 04/27/23 History mg tablet (Osteo Bi-Flex) olopatadine 0.2 % eye drops 1 drp ophthalmic (eye) QPM 05/18/21 04/27/23 History fluocinonide 0.05 % topical cream 1 applic topical BID PRN rash #15 01/07/22 04/27/23 Rx grams fluocinonide 0.05 % topical gel 1 applic topical BID PRN itching 01/07/22 04/27/23 Rx #15 grams levothyroxine 25 mcg tablet 25 mcg PO QAM #90 tabs 04/22/22 04/27/23 Rx fluticasone propionate 50 2 spray intranasal DAILY PRN 08/09/22 04/27/23 History mcg/actuation nasal Congestion spray,suspension (Allergy Relief (fluticasone)) famotidine 20 mg tablet 20 mg PO BID #180 tabs 03/13/23 04/27/23 Rx azelastine 137 mcg (0.1 %) nasal 137 mcg intranasal ONCE PRN 04/13/23 04/27/23 History spray aerosol Congestion carboxymethylcellulose 0.5 1 drp ophthalmic (eye) BID PRN Dry 04/13/23 04/27/23 History %-glycerin 0.9 % eye drops Eye(S) (Refresh Relieva) acetaminophen 500 mg tablet 1,000 mg (2 x 500 mg) PO TID pain 06/04/23 Rx (Tylenol Extra Strength) 30 days #180 tabs aspirin 81 mg tablet,delayed 81 mg PO BID 45 days #90 tabs 06/04/23 Rx release (Mickey Low Dose Aspirin) ketorolac 10 mg tablet 10 mg PO Q8H pain 5 days #15 tabs 06/04/23 Rx ondansetron 4 mg disintegrating 4 mg PO Q8 PRN nausea #20 tabs 06/04/23 Rx tablet sennosides 8.6 mg tablet (Senokot) 8.6 mg PO BID prevent constipation 06/04/23 Rx 14 days #28 tabs tramadol 50 mg tablet 50 - 100 mg (1 - 2 x 50 mg) PO Q6 06/04/23 Rx PRN pain #40 tabs Past Med/Surg History Medical History Leukopenia Trochanteric bursitis, right hip Dry eye Liver cyst CT Abd/Pelvis 12/2022: Stable "simple appearing" right hepatic lobe cyst 4cm (stable since 2018) + additional 8mm medial left hepatic lobe Osteoarthritis Kidney problem Told "one kidney very small" Right knee DJD Ganglion, left hand GERD (gastroesophageal reflux disease) Posterior tibial tendon dysfunction, right Excessive salivation Occasional, felt r/t lichen planus per patient Renal cyst Per records DARLENE (acute kidney injury) 2018, felt to be r/t 6 weeks of ASA + Sulfa Antibiotic treatment s/p Left TKA Continues to follow [facility] for kidney care annual/Dr. Orozco Prolapse of bladder Occasional urinary incontinence Vertigo Occasional (since left ear hearing loss) Balance problem since left ear hearing loss Deaf left ear, transmitter Kidney stone hx Lichen planus Hypothyroid Borderline high cholesterol DJD (degenerative joint disease) of knee Surgical History History of removal of cyst History of cataract surgery R/L History of cystoscopy Status post biopsy of kidney History of cystocele 2019 History of esophagogastroduodenoscopy (EGD) S/P total knee arthroplasty Left TKA, right knee injection (03/19/19): SAB at L3-4 + PNB at [facility] History of vascular surgery LLE vein stripping/removal History of hand surgery Left hand trigger finger, cyst removal right middle finger History of vaginal hysterectomy History of tonsillectomy History of colonoscopy with polypectomy Family History Father History of angioplasty Family history of diabetes mellitus (DM) Grandmother , 79 Family history of diabetes mellitus (DM) Myocardial infarction Mother Dementia Other No family history of adverse response to anesthesia Denies family history of Ovarian cancer Prostate cancer Breast cancer Colorectal cancer Social History Smoking Status: Never smoker Second Hand Exposure: No; Do You Dip or Chew Tobacco: No; Hx Alcohol Use: No Hx Substance Use: No Preferred Language: Kiswahili Communication Ability: Effective Visual Impairment: No Limitations Hearing Ability: Use of Hearing Aid Cafeteria Table Attendant Required: No Beliefs That Will Affect Care: None and Zoroastrian Zoroastrian Beliefs: GNOSTICISM marital status: Current Living Situation: Spouse current occupational status: retired How many Children do You have: 2 Feels Safe at Home: Yes Safety Concerns: Feels Safe At This Time Childhood Exposure to Second-Hand Smoke: Yes (father) Diet: regular caffeine: Yes (green tea) during the past year weight has: remained stable Dental Care, Regularly: Yes Physical Activity Frequency: 5-6 Times per Week Seatbelt Use: always Sunscreen Use: Yes Do you think of yourself as: straight/heterosexual Gender Identity: Female Assistive Devices: Hearing Aid - Right Assistive Devices Comment: transmitter in left ear Review of Systems All systems reviewed & are unremarkable except as noted in HPI & below. Physical Exam . Physical examination reveals a pleasant elderly female but looks in good health. Examination of the right knee reveals patient walks with a fairly normal gait. She got a slight valgus alignment to her knee which is increased with weightbearing. Small knee effusion. Range of motion 0-1 20. No particular pain with hip motion. She does have significant hindfoot valgus alignment as well with some posterior tibial tendon insufficiency. She is neurovascular intact. Constitutional WD/WN, vitals as above Respiratory normal respiratory effort, lungs clear to auscultation Cardiovascular RRR, no murmur, no edema Gastrointestinal (Abdomen) normal bowel sounds, soft, nontender, no hepatosplenomegaly Results & Data Results & Data Laboratory Results . Diagnostic Findings . X-rays of the right knee reviewed. Shows advanced right knee lateral compartment DJD. She has complete loss of the joint space on the 4 degree flexion films. She got osteophytes medially and laterally. Left knee replaced looks in good position without problems. PG Care Time/CCT Total # of Minutes Spent Total Time Spent with Patient: Total time spent is greater than 50% in coordination of care (as documented) at patient's floor/unit and/or counseling patient: Coding Level of Care Code None Diagnoses Right knee DJD M17.11 H/O total knee replacement Z96.659
[~2023-06-06 09:17] MED LIST changes: -BUPIVACAINE LIPOSOME/PF 266 MG, BUPIVACAINE/EPINEPHRINE 50 ML, SODIUM CHLORIDE 0.9% 30 ... INFIL SCH; -CEFAZOLIN 2000MG 2,000 MG/15 ML SYR IV SCH; +CeleBREX 200 MG CAP PO SCH; -GABAPENTIN 300 MG CAP PO SCH; -LR 15ML/HR IV SCH; +LR 500ML BOLUS, THEN 15ML/HR IV SCH; +ROPIV 0.5% 246mg, Ketorolac 30mg, EPINEPHrine 0.5mg in NSS INFIL SCH; -[UNRECOGNIZED DRUG - REMARK] SCH; +ceFAZolin 2000MG 2,000 MG/15 ML SYR IV SCH; +dexAMETHasone**PF** 10 MG/ML VIAL IV SCH
[2023-06-06] MEDS ORDERED: PROPOFOL IV EMULSION 10 MG/ML 20 ML VIAL IV ONE (10:08)
[2023-06-06] MEDS ORDERED: MIDAZOLAM HCL 1 MG/ML 2ML VIAL ONE (10:10)
[2023-06-06] MEDS ORDERED: fentaNYL citrate PF 100 MCG/2 ML VIAL ONE (10:11)
[2023-06-06] MEDS ORDERED: ORTHO JOINT ANESTHETIC ONE (10:46)
--- NOTE | 2023-06-06 10:46 | History & Physical Bridge Note ---
Date of Service June 06, 2023 History & Physical Bridge Note I have examined the patient, reviewed the History & Physical and in the interval since the performance of the History & Physical I have noted the following changes of clinical significance: no changes noted
[2023-06-06] MEDS ORDERED: ePHEDrine sulfate 50 MG/5 ML SYR ONE (12:04)
--- OUTSIDE RECORDS SUMMARY | 2023-06-06 12:07 | External Medical Summary | Summary of Care ---
Author Name Unknown Organization [facility] Address [address] [place] [address] Phone [phone] Care Team Providers Care Cio Name Role Phone James Cadet DO Primary Care Provider + [phone] Reason for Visit * Reason Comments Skin Check FBSE - HX AK's, Lich en Planus on shoulder and back, Lentigines. Concerning spot left side of nose - states was removed once by Dr. Ontiveros. Encounter Details Date Type Department Care Team (Late st Contact Info) Description 05/22/2023 9:00 AM EST Office Visit Dermatology, [facility] Garrett [address] [place] [address] Maryjo Araujo PA-C [address] [facility] [address] [place] [address] AK (actinic keratosis)*; Multiple nevi; Lentigines; Lichen planus; Skin exam, screening for cancer Allergies Active Allergy Reactions Criticality Noted Date Comments Sulfamethoxazole-Tri methoprim Edema face/lips/tongue,Renal complications High 05/14/2019 DARLENE & swelling Droperidol 06/14/2011 Pt states that she had a crazy experience on this medications. Molds & Smuts 04/28/2017 Sinus Congestion Morphine Nausea/vomiting Medium 07/01/2015 documented as of this encounter (statuses as of 05/22/2023) Medications Medication Sig Dispensed Refills Start Date End Date Status levothyroxine (LEVOXYL) 25 MCG TabletIndications :Hypothyroidism TAKE 1 TABLET DAILY 90 Tab 0 03/25/2019 Active clotrimazole-beta methasone (LOTRISONE) 1-0.05 % cream 0 05/23/2019 Active Famotidine 40 MG Oral Tablet (PEPCID) Take 1 Tablet by mouth in the morning. 0 03/26/2020 Active Fluocinonide 0.05 % External Gel (Lidex)Indication s:Lichen planus Apply to patches inside the cheeks twice daily Monday Thru 15 g 1 07/03/2020 Active Refresh Relieva PF 0.5-1 % Ophthalmic Solution (Carboxymethylcel l-Glycerin PF) Instill into eye. 0 Act alta Olopatadine HCl 0.2 % Ophthalmic Solution Instill 1 Drop into eye in the morning. 0 Active Ammonium Lactate 12 % External CreamIndications: Xerosis cutis Apply to body twice daily 385 g 5 05/21/2021 Active Albuterol Sulfate (TO GO ALBUTEROL HFA) IN puff 2 puffs every 4 to 6 hours as needed for cough or difficulty breathing, use with spacer 1 Each 0 02/18/2022 Active Glucosamine-Chond roitin 250-200 MG Oral Tablet 2 Tablets. 0 Active Ventolin HFA 108 (90 Base) MCG/ACT Inhalation Aerosol Solution Inhale 2 Puffs by mouth in the morning and 2 Puffs at noon and 2 Puffs in the evening and 2 Puffs before bedtime. 8 g 1 03/21/2022 Active Flonase Sensimist 27.5 MCG/SPRAY Nasal Suspension (Fluticasone Furoate)Indicatio ns:Chronic rhinitis Administer 2 Sprays into nostril in the morning. 0 Active Loratadine 10 MG Oral TabletIndications :Chronic rhinitis Take 1 Tablet by mouth in the morning. 0 Active Azelastine HCl 0.1 % Nasal Solution (Astelin)Indicati ons:Chronic rhinitis Administer 2 Sprays into nostril every evening. 90 mL 3 06/23/2022 Active Triamcinolone Acetonide 0.1 % External Cream (Aristocort)Indic ations:Lichen planus Apply twice daily to trunk and extremities up to 2 weeks, then taper to weekends only Fri-Sun as needed 454 g 1 05/22/2023 Active Triamcinolone Acetonide 0.1 % Mouth/Throat Paste (Kenalog In Orabase)Indicatio ns:Lichen planus Apply to sores in the mouth twice daily as needed for flares 5 g 1 05/22/2023 Active Triamcinolone Acetonide 0.1 % Mouth/Throat Paste (Kenalog In Orabase)Indicatio ns:Lichen planus Apply to sores in the mouth twice daily as needed for flares 5 g 1 05/21/2021 05/22/2023 Discontinued (Refill) documented as of this encounter (statuses as of 05/22/2023) Active Problems Problem Noted Date Diagnosed Date Stage 3a chronic kidney disease 08/24/2020 Overview: Per CKD protocol Acute multiple gastric erosions 05/14/2019 Generalized edema 05/11/2019 DARLENE (acute kidney injury) 05/11/2019 Advanced directives, counseling/discussion 02/16 Prolapse of vaginal vault after hysterectomy Cystocele, lateral 07/28/2017 Urge incontinence of urine 07/28/2017 BERT (stress urinary incontinence, female) 2017 Constipation 07/28/2017 Hx of sudden hearing loss 05/17/2017 Lichen planus 09/15/2015 Multiple allergies 02/20/2014 Subjective tinnitus 12/10/2013 Environmental allergies 12/10/2013 Dyslipidemia, goal LDL below 130 04/23/2009 Overview: Per Lipid Taxonomy. Osteoporosis 02/03/2003 GENERAL OSTEOARTHROSIS 02/03/2003 Lumbosacral spondylosis 02/03/2003 Hypothyroidism 11/11/2002 Hyperkalemia Nephrolithiasis documented as of this encounter (statuses as of 05/22/2023) Resolved Problems Problem Noted Date Diagnosed Date Resolved Date Kidney disease, chronic, sta ge III (GFR 30-59 ml/min) 08/22/2017 08/27/2020 Overview: Per CKD protocol #1 PURE HYPERCHOLESTEROLEM 11/11/200206/15 Overview: Per Lipid Taxonomy. documented as of this encounter (statuses as of 05/22/2023) Immunizations Name Administration Dates Next Due COVID-19 mRNA, LNP-s, No Pre serve, 2-Dose Series (Pfizer) 02/24/2021,07/23/2020,06/22/2020 Pneumococcal Conjugate Vacc, 13 Valent (Prevnar) 03/12/2015 Pneumococcal Polysaccharide PPV23 (Pneumovax) 06/11/2007 Seasonal Influenza, Quadriva lent, No Preserve, IM 02/24/2017,02/22/2016,03/12/2015 Seasonal Influenza, Split, I IV3, With Preserve, Inj 01/23/2014,02/14/2013,02/09/2012,01/20,04/08/2009,02/19/2008 Seasonal Influenza, Trivalen t, Adjuvanted, 65+ yrs 01/27/2021,02/24/2020 TD - Tetanus/Diptheria (ADULT) 02/19/2008 TDAP (age 10 and older)(Boostrix) 02/24/2014 documented as of this encounter Social History Tobacco Use Types Packs/Day Years Used Date Smoking Tobacco: Never Smokeless Tobacco: Never Tobacco Cessation:Counseling Given: Not Answered Alcohol Use Standard Drinks/Week Comments Yes 0 (1 standard drink = 0.6 oz pur e alcohol) socially PHQ-2 Answer Date Recorded PHQ-2 Score -1 03/18/2018 Sex and Gender Information Value Date Recorded Sex Assigned at Not on file Gender Identity Not on file Sexual Orientation Not on file Job Start Date Occupation Industry Not on file Not on file Not on file documented as of this encounter Functional Status Functional Status Response Date of Assess ment Are you deaf or do you have serious difficulty h earing? No 05/11/2019 Are you blind or do you have serious difficulty seeing, even when wearing glasses? No 05/11/2019 Do you have serious difficul ty walking or climbing stairs? (5 years old or older) No 05/11/2019 Do you have difficulty dress ing or bathing? (5 years old or older) No 05/11/2019 Because of a physical, menta l, or emotional condition, do you have difficulty doing errands alone such as visiting a doctor s office or shopping? (15 years old or older) No 05/11/20 19 Cognitive Status Response Date of Assessm ent Because of a physical, menta l, or emotional condition, do you have serious difficulty concentrating, remembering, or making decisions? (5 years old or older) No 05/11/2019 documented as of this encounter Patient Instructions * Patient Instructions* Maryjo Araujo PA-C - 05/22/2023 9:36 AM EST Tinted sunscreen: Neutrogena or Tizo (zinc oxide and titanium oxide) documented in this encounter Progress Notes * Maryjo Araujo PA-C - 05/22/2023 9:00 AM EST SUBJECTIVE: CC: Chief Complaint Patient presents with Skin Check FBSE - HX AK's, Lichen Planus on shoulder and back, Lentigines. Concerning spot left side of nose - states was removed once by Dr. Ontiveros. HPI: Sarahy Kovacs is a 82 year old female who is an established patient presenting for annual skin check. Last dermatology clinic visit: 05/[address] Ontiveros. Rough spot on left side nose that is back and was treated with cryo in past. LP well controlled, follows q 6 months with claims service representative and dentist. She follows a very strict oral regime. Using triamcinolone paste prn. Rare flare of LP on trunk, but would like refill of triamcinolone to have on hand when it does. DERMATOLOGIC PAST MEDICAL HISTORY: Reviewed previous office notes and relevant surgical pathology: History of skin disorders: AKs s/p cryo, SK, Xerosis (lac hydrin), lichen planus (TMC), solar lentigo History of skin cancer: no Sunscreen use: yes and gardening hat SOCIAL HISTORY: Retired teacher REVIEW OF SYSTEMS: See HPI- all other findings negative Constitutional: (-) fever, chills, sweats, weight loss Skin: (-) no rash or new or changing moles or skin lesions MEDICA TIONS: Current Outpatient Medications Medication Sig Dispense Refill levothyroxine (LEVOXYL) 25 MCG Tablet TAKE 1 TABLET DAILY 90 Tab 0 clotrimazole-betamethasone (LOTRISONE) 1-0.05 % cream Famotidine 40 MG Oral Tablet (PEPCID) Take 1 Tablet by mouth in the morning. Fluocinonide 0.05 % External Gel (Lidex) Apply to patches inside the cheeks twice daily Monday Thr 15 g 1 Refresh Relieva PF 0.5-1 % Ophthalmic Solution (Carboxymethylcell-Glycerin PF) Instill into eye. Olopatadine HCl 0.2 % Ophthalmic Solution Instill 1 Drop into eye in the morning. Ammonium Lactate 12 % External Cream Apply to body twice daily 385 g 5 Albuterol Sulfate (TO GO ALBUTEROL HFA) IN puff 2 puffs every 4 to 6 hours as needed for cough or difficulty breathing, use with spacer 1 Each 0 Glucosamine-Chondroitin 250-200 MG Oral Tablet 2 Tablets. Ventolin HFA 108 (90 Base) MCG/ACT Inhalation Aerosol Solution Inhale 2 Puffs by mouth in the morning and 2 Puffs at noon and 2 Puffs in the evening and 2 Puffs before bedtime. 8 g 1 Flonase Sensimist 27.5 MCG/SPRAY Nasal Suspension (Fluticasone Furoate) Administer 2 Sprays into nostril in the morning. Loratadine 10 MG Oral Tablet Take 1 Tablet by mouth in the morning. Azelastine HCl 0.1 % Nasal Solution (Astelin) Administer 2 Sprays into nostril every evening. 90 mL3 Triamcinolone Acetonide 0.1 % External Cream (Aristocort) Apply twice daily to trunk and extremities up to 2 weeks, then taper to weekends only Mon-Sun as needed 454 g 1 Triamcinolone Acetonide 0.1 % Mouth/Throat Paste (Kenalog In Orabase) Apply to sores in the mouth twice daily as needed for flares 5 g 1 No current facility-administered medications for this visit. ALLERG Y: Bactrim [sulfamethoxazole-trimethoprim], Morphine, Droperidol, and Molds & smuts OBJECTIVE: GEN: Healthy, alert, no distress, appears oriented, pleasant, and cooperative. PSYCH: Appropriate mood and affect, alert SKIN: Detailed exam of scalp, hair, face including lids and lips, ears, neck, chest, back, abdomen,buttocks, deferred groin exam, bilateral upper extremities and bilateral lower extremities including the nails and digits was completed and are within normal limits with the following exceptions: Nose and left methodist rough, scaly, thin whitish to pink papules 2. Scattered at the chest, abdomen, back, upper and lower extremities are multiple evenly pigmentedtan to brown macules and papules without significant irregularity ASSESSMENT/PLAN: Actinic Keratosis (Quantity 4, Location as noted in exam) -Educated on premalignant potential and small risk of developing into a SCC -Discussed treatment options including cryotherapy. Patient prefers cryotherapy. -Cryosurgery procedure, risks and benefits explained to the patient. Specifically, side effects including blistering, hyperpigmentation, hypopigmentation, scar or pain at procedure site was discussedand patient verbalized understanding. Consent was obtained. Patient, site and procedure verified. Cryotherapy was performed with Liquid Nitrogen via cryo spray unit to 4 lesions. Location noted in physical exam. Post op course explained. -Counseled on importance of sun protection with sunscreen of at least SPF 30 and protective clothing. -Discussed importance of yearly skin checks and to contact our office if notices any new or changesskin lesion. 2. Multiple benign-appearing nevi and lentigines - No features concerning for malignancy on exam today. - Continue to monitor with monthly self-skin exams. - Patient counseled on ABCDEs of melanoma. - Discussed and emphasized importance of sun protection including broadband, water-resistant, SPF 30 or greater sunscreen with reapplication q2h or after swimming/excessive perspiration and sun protective attire (wide-brimmed hats, long pants/shirt, sunglasses). - Patient to contact physician for any new or changing lesions or other concerns. 3. Hx of Lichen planus - DERM IMAGE (SITE) - Triamcinolone Acetonide 0.1 % External Cream (Aristocort); Apply twice daily to trunk and extremities up to 2 weeks, then taper to weekends only Fri-Sun as needed - Triamcinolone Acetonide 0.1 % Mouth/Throat Paste (Kenalog In Orabase); Apply to sores in the mouth twice daily as needed for flares -Well controlled, encouraged continued routine follow- up with claims service representative and local dentist. 4. Skin exam, screening for cancer - DERM IMAGE (SITE) Follow Up: Return in about 1 year (around 05/22/2024). Patient alone today. Follow-up: 1 year Photos taken, patient consented to photos taken. Applicable photos (if any) and chart reviewed by Dr. Peter Perez. The patient was encouraged to contact me with any further questions or concerns. Maryjo Araujo PA-C 05/22/2023 documented in this encounter Nursing Notes * Yoon Urbina LPN - 05/22/2023 9:01 AM EST Chief Complaint Patient presents with Skin Check FBSE - HX AK's, Lichen Planus on shoulder and back, Lentigines. Concerning spot left side of nose - states was removed once by Dr. Ontiveros. Last visit - 05/20/22 Dr. Ontiveros documented in this encounter Plan of Treatment Upcoming Encounters Date Type Department Care Team (Late st Contact Info) Description 08/21/2023 1:40 PM EDT Office Visit Nephrology, [address] [address] Teresita Mcrae MD [address] [place] [id number] Scheduled Procedures Name Priority Associated Diagnoses Date/Ti me COLONOSCOPY FLEXIBLE PROXIMA L DIAGNOSTIC Recall History of colonic polyps Health Maintenance Due Date Last Done Comments Depression Screening 06/08/2018 06/08/2017, 08/29/19 15 *BISPHONATE OR OTHER ACCEPTABLE MEDICATION NEEDED FOR OSTEOPOROSIS (REFER TO SMARTSET #1146) 05/15/2019 Albumin/Creatinine Ratio 05/12/2020 05/12/2019, 11/12 CKD PHOS USE SMARTSET 45290 05/20/202010/2019, 05/13/2019, 11/30/2017 TSH 02/24/2022 02/24/2021, 0306/2019, 05/12/2019, Additional history exists COVID-19 Vaccine (2022- season) 2023 01/27/2022, 09/16/2021, 02/24/2021, Additional history exists Influenza Vaccine (FLU shot) (#1) 2023 01/27/2021, 02/24/2020, 02/24/2017, Additional history exists GFR 06/30/2023 12/28/2022, 11/2021, 02/24/2021, Additional history exists CKD HGB USE SMARTSET 30697 12/29/202312/28, 12/28/2022, 02/18/2022, Additional history exists DTaP,Tdap,and Td Vaccines (2 - Td or Tdap) 02/25/2024 02/24/2014, 02/19/2008, 02/19/2008 DXA Scan 01/10/2025 01/10/2023, 09/2017, 03/17/2016, Additional history exists COLONOSCOPY-EVERY 5 YRS AGES 18-100 07/30/2025 07/30/2020, 07/30/2020, 06/25/2015, Additional history exists Pneumococcal Vaccine: 65+ Years Completed 03/12/2015, 06/11/2007 VITAMIN D LEVEL ONCE IN A LIFETIME-USE SMARTSET# 82159 Completed 05/12/2019, 04/06/2015 Zoster Vaccines Completed 09/14/2020, 03/25/2020 GARDASIL-HPV IMMUNIZATION SERIES Aged Out No longer eligible based on patient's age to complete this topic Hepatitis B Aged Out No longer eligi ble based on patient's age to complete this topic MENINGOCOCCAL (MENACTRA/MENVEO) Aged Out No longer eligible based on patient's age to complete this topic documented as of this encounter Medical Devices Implanted Type Area Grass Cutter Device Identifier Shelf Expiration Date Model / Serial / Lot Lens Intraoc 22.0 - [id number] - [id number] Implanted:Qty: 1 on 12/03/2019 by Kirt Guillen MD at OR [facility] [address] Right: Eye BAUSCH [employer] LOMB 07/12/2024 [id number] / [id number] / [id number] Sofport Implanted:Qty: 1 on 01/23/2020 by Kirt Guillen MD at OR [facility] [address] Left: Eye BAUSCH & LOMB 06/14/2024 [id number] / [id number] / [id number] documented as of this encounter Visit Diagnoses Diagnosis AK (actinic keratosis)- Primary Actinic keratosis Multiple nevi Benign neoplasm of skin, site unspecified Lentigines Other dyschromia Lichen planus Skin exam, screening for cancer Screening for malignant neoplasm of the skin documented in this encounter Advance Directives Latest Code Status on File Code Status Date Activated Date Inactivated Comments Full Code 05/11/2019 6:00 PM 05/14/2019 9:08 PM Thi s order reflects the patients wishes and were consensually agreed upon. Question Answer Comments Discussion of Advance Directives occurred with: Patient Care Teams Cio Relationship Specialty Start Date End Date James Cadet DO [address] [facility] [place] [address] PCP - General Family Medicine 03/19/18 documented as of this encounter
--- OUTSIDE RECORDS SUMMARY | 2023-06-06 12:07 | External Medical Summary | Summary of Care ---
Author Name Unknown Organization [facility] Address [address] [place] [facility] [address] Phone [phone] Care Team Providers Care Jukebox Route Driver Name Role Phone James Cadet DO Primary Care Provider + [phone] Reason for Visit * Reason Comments Skin Check FBSE - HX AK's, Lich en Planus on shoulder and back, Lentigines. Concerning spot left side of nose - states was removed once by Dr. Ontiveros. Encounter Details Date Type Department Care Team (Late st Contact Info) Description 05/22/2023 9:00 AM EST Office Visit Dermatology, Warren Garrett [address] [place] [address] Maryjo Araujo PA-C [address] [facility] [address] [place] [address] [place] (actinic keratosis)*; Multiple nevi; Lentigines; Lichen planus; Skin exam, screening for cancer Allergies Active Allergy Reactions Criticality Noted Date Comments Sulfamethoxazole-Tri methoprim Edema face/lips/tongue,Renal complications High 05/14/2019 DARLENE & swelling Droperidol 06/14/2011 Pt states that she had a crazy experience on this medications. Molds & Smuts 04/28/2017 Sinus Congestion Morphine Nausea/vomiting Medium 07/01/2015 documented as of this encounter (statuses as of 05/23/2023) Medications Medication Sig Dispensed Refills Start Date [...] as of this encounter (statuses as of 05/23/2023) Active Problems Problem Noted Date Diagnosed Date [...] as of this encounter (statuses as of 05/23/2023) Resolved Problems Problem Noted Date Diagnosed Date Resolved Date Kidney disease, chronic, sta ge III (GFR 30-59 ml/min) 08/22/2017 08/27/2020 Overview: Per CKD protocol #1 PURE HYPERCHOLESTEROLEM 11/11/200206/15 Overview: Per Lipid Taxonomy. documented as of this encounter (statuses as of 05/23/2023) Immunizations Name Administration Dates Next Due COVID-19 [...] well controlled, follows q 6 months with store standards associate and dentist. She follows a very strict [...] with the following exceptions: Nose and left yarsanism rough, scaly, thin whitish to pink papules [...] controlled, encouraged continued routine follow- up with store standards associate and local dentist. 4. Skin exam, screening for cancer - DERM IMAGE (SITE) Follow Up: Return in about 1 year (around 05/22/2024). Patient alone today. Follow-up: 1 year Photos taken, patient consented to photos taken. Applicable photos (if any) and chart reviewed by Dr. Peter Perez. The patient was encouraged to contact me with any further questions or concerns. Maryjo Araujo PA-C 05/22/2023 * Curt Perez MD - 05/22/2023 9:00 AM EST I have reviewed the relevant notes and photographs taken by Maryjo Araujo PA-C. I have reviewed and agree with the assessment and plan. Curt Perez MD documented in this encounter Nursing Notes * [...] 08/21/2023 1:40 PM EDT Office Visit Nephrology, [address] [address] Teresita Mcrae MD [address] [place] [address] [id number] Scheduled Procedures Name Priority Associated Diagnoses Date/Ti me COLONOSCOPY FLEXIBLE PROXIMA L DIAGNOSTIC Recall History of colonic polyps Health Maintenance Due Date Last Done Comments Depression Screening 06/08/2018 06/08/2017, 08/29/19 15 *BISPHONATE OR OTHER ACCEPTABLE MEDICATION NEEDED FOR OSTEOPOROSIS (REFER TO SMARTSET #1146) 05/15/2019 Albumin/Creatinine Ratio 05/12/2020 05/12/2019, 11/12 CKD PHOS USE SMARTSET 02322 05/20/202010/2019, 05/13/2019, 11/30/2017 TSH 02/24/2022 02/24/2021, 0306/2019, 05/12/2019, Additional history exists COVID-19 Vaccine ( season) 2023 01/27/2022, 09/16/2021, 02/24/2021, Additional history exists Influenza Vaccine (FLU shot) (#1) 2023 01/27/2021, 02/24/2020, 02/24/2017, Additional history exists GFR 06/30/2023 12/28/2022, 11/2021, 02/24/2021, Additional history exists CKD HGB USE SMARTSET 04527 12/29/202312/28, 12/28/2022, 02/18/2022, Additional history exists DTaP,Tdap,and Td Vaccines (2 - Td or Tdap) 02/25/2024 02/24/2014, 02/19/2008, 02/19/2008 DXA Scan 01/10/2025 01/10/2023, 09/2017, 03/17/2016, Additional history exists COLONOSCOPY-EVERY 5 YRS AGES 18-100 07/30/2025 07/30/2020, 07/30/2020, 06/25/2015, Additional history exists Pneumococcal Vaccine: 65+ Years Completed 03/12/2015, 06/11/2007 VITAMIN D LEVEL ONCE IN A LIFETIME-USE SMARTSET# 86231 Completed 05/12/2019, 04/06/2015 Zoster Vaccines Completed 09/14/2020, [...] this encounter Medical Devices Implanted Type Area Strategic Planner Device Identifier Shelf Expiration Date Model / Serial / Lot Lens Intraoc 22.0 - [id number] - [id number] Implanted:Qty: 1 on 12/03/2019 by Kirt Guillen MD at OR [facility] Right: Eye BAUSCH & LOMB 07/12/2024 [id number] / [id number] / [id number] Sofport Implanted:Qty: 1 on 01/23/2020 by Kirt Guillen MD at OR [facility] Left: Eye BAUSCH & LOMB 06/14/2024 [id number] / [id number] / [id number] documented as of this encounter Procedures Procedure Name Priority Date/Time Associated Diagnosis Comments DERM IMAGE (SITE) Routine 05/22/2023 Lichen planus AK (actinic keratosis) Skin exam, screening for cancer Lentigines documented in this encounter Results * DERM IMAGE (SITE) (05/22/2023) 05/22/2023 Maryjo Araujo PA-C DIGITAL PHOTOGR APHY documented in this encounter Visit Diagnoses Diagnosis AK (actinic [...] Advance Directives occurred with: Patient Care Teams Jukebox Route Driver Relationship Specialty Start Date End Date James Cadet DO [address] [facility] [place] [address] PCP - General Family Medicine 03/19/18 documented as of this encounter
--- NOTE | 2023-06-06 12:45 | Operative Report ---
PG Post Operative Report Pre & Post Diagnosis Operation Date: 06/06/23 10:40 Pre-Op Diagnosis: Right Knee Advanced Degenerative Joint Disease Post-Op Diagnosis: Right Knee Advanced Degenerative Joint Disease I identified the patient and participated in the time-out.: Yes Procedure Operation Date: 06/06/23 10:40 Actual Procedures p Right Total Knee Arthroplasty(Right) - Austin Washington MD Surgeon Austin Washington MD Mysql Database Developer Aditya Colon PA-C Estimated Blood Loss 50 Findings Consistent with Post-Op Diagnosis Operative findings were advanced right lateral compartment DJD with extensive grade 4 [id number] disease of the lateral compartment. She had a valgus deformity to her knee. Moderate-sized joint effusion. Diffuse osteopenia. Specimens Right knee sent for pathology. Anesthesia Type Spinal MAC Complications none Disposition Accompanied Patient To Recovery: No Indications Patient is an 82-year-old female who has had a long history of knee problems. She had a left knee replacement about 4 years ago and done well from this. Continued to be debilitated by right knee pain discomfort that gradually gotten worse over time 2. She failed conservative measures. She would like to proceed with right total knee arthroplasty. Description of Procedure Operative implants consist of: 1. Biomet Vanguard size 62.5 right Po stabilized femoral component. 2. Biomet size 63 tibial tray. 3. 10 mm post stabilized polyethylene insert. 4. 28 x 8 all poly patella. The patient was taken the operating, identified, and placed on the operating table in the supine position but all contact areas were appropriately padded. IV antibiotics tried by anesthesia team. A spinal anesthetic and adductor canal block had been applied in the holding area. A Jose catheter was placed in sterile fashion. Right Tetrick was then placed in the right lower extremities then prepped and draped in usual sterile fashion. The right leg was elevated exsanguinated with use of an Esmarch and a turn was placed at 3 mmHg. An anterior approach to the right knee was then performed to longitudinal incision centered over the patella. Sharp dissection was carried through subcutaneous tissue down the extensor mechanism. A medial parapatellar arthrotomy incision was made. Some subperiosteal dissection was carried out medially. The fat pad was resected from Neath patella tendon. Lateral patellofemoral ligament was released. Patella subluxated laterally knee was flexed. The osteophytes taken on distal femur. The ACL and PCL were then released and the distal femur and the tibia subluxated anteriorly. The external treatment line jig was then placed in the interface the tibia and adjusted 12 mm medially. Proximal tibial cut was made remove about 3 to 4 mm of bone from the medial side. The tibia sized to a size 63. Attention drawn the femur. The distal femur examined the sharp drill. Intramedullary canal was suction. A right 5 degree valgus cutting guide was placed. The distal femoral cutting block was pinned in place. Distal femoral cut was made to take an additional 3 mm bone off distal femur. The femur was then sized to a size 62.5. The AP cutting block was pinned parallel to the epicondylar axis which was 4 degrees of external rotation. Anterior cut, anterior chamfer, posterior cut, posterior chamfer cuts were made. The box cutting guide was placed in the just slight lateral and the box cut was made. The knee was flexed. The remnants of the medial and lateral menisci were excised. The osteophyte taken off the posterior aspect the femur. A trial femoral component was placed to the tibial tray was pinned Shellie external rotation and the drill and stem punch were used to create defect in proximal tibia for the tibial tray. Knee was then trialed and the 10 mm insert fit most appropriately. Attention drawn the patella. The patella was cleaned of all soft tissue. Patella thickness measured 18 mm in thickness was cut down to 12. Was sized to a size 28 patella. The lug holes were drilled for the 28 patella. The lateral osteophytes removed. Patella button was placed. Knee was taken through range of motion patella tracked nicely with no thumbs test. Attention drawn to placing permanent components. All trial components were removed. Bone plug was placed in the distal femur limit blood loss. A double batch of [place] G cement was mixed. Biomet Vanguard size 62.5 right posterior stabilized femoral component, size 63 tibial tray, 10 mm pro stabilized polyethylene insert, and a 28 x 8 all poly patella were then cemented in place. The knee was brought out into full extension till cement hardened. Final cement check was then performed. The pericapsular tissues were injected with total of 100 cc of a combination of 50 cc of ropivacaine, epinephrine, 30 mg of Toradol, and 30 cc of normal saline. The tourniquet was then let down for tourniquet time of 46 minutes. Hemostasis assured with electrocautery. Extensor Meclomen closed with combination 1 PDS suture #1 Vicryl suture in [id number] fashion. Extensor [place] checked found to be intact the subcutaneous tissues then closed 2 Dexon suture in buried fashion skin was closed skin stephen. Leg was then cleaned and dried and sterile dressing was Xeroform, 4 fours, sterile cast padding, Abdiel bandage were applied. Patient then transferred to the recovery room in stable condition. Patient tolerated procedure well and there were no complications. Aditya Colon, my physician assistant elementary teacher, was present for the entire procedure. His assistance was essential and required for appropriate patient positioning, prepping and draping, surgical exposure, performing the technical details of the operation, placement the implants, closure of the wound, and placement of the sterile bandage. I attest to the content of the Intraoperative Record and any orders documented therein. Any exceptions are noted below.
--- NOTE | 2023-06-06 13:34 | Anesthesiology Progress Note ---
Date of Service June 06, 2023 Anesthesia Post Procedure Vital Signs Vital Signs: Temp Pulse Resp BP Pulse Ox O2 Del Method O2 Flow Rate 06/06/23 13:20 77 24 122/61 95 Room Air 0 06/06/23 13:10 75 15 113/58 L 93 Oxymask 2 06/06/23 13:00 75 19 116/52 L 96 Oxymask 2 06/06/23 12:50 80 15 96/60 L 98 Oxymask 3 06/06/23 12:44 97.2 F L 80 17 105/52 L 97 Oxymask 5 06/06/23 10:00 97.9 F 60 20 142/70 H 98 Room Air Transfer of Care Handoff Completed per policy Notes Mental Status: alert / awake / arousable and participated in evaluation Patient Amnestic to Procedure: Yes Nausea / Vomiting: adequately controlled Pain: adequately controlled Airway Patency, RR, SpO2: stable & adequate BP & HR: stable & adequate Hydration State: stable & adequate Neuraxial Anesthesia: was administered and sensory block is resolving Anesthetic Complications: no major complications apparent and Pt Satisfied with anesthetic care
--- NOTE | 2023-06-06 13:52 | XRay Report ---
XR knee RT 1 or 2V routine HISTORY: 82 years-old Female Surgical Post Op right knee arthroplasty COMPARISON: 01/19/2023 TECHNIQUE: 2 views of the right knee FINDINGS: Total joint arthroplasty with patellar resurfacing. Anterior midline skin stephen with expected posto perative soft tissue swelling and deep tissue air. No acute fracture, dislocation or unexpected opaqu e foreign body. IMPRESSION: Total joint arthroplasty with expected postoperative changes. ACT 112: Negative or not required by law. The above report was generated using voice recognition software. It may contain grammatical, syntax o r spelling errors. Electronically signed by: Ger Loya M.D. 06/06/2023 1:51 PM
[2023-06-06] MEDS ORDERED: METOCLOPRAMIDE HCL INJ 5 MG/ML 2 ML VIAL IV PRN (14:02)
[2023-06-06] MEDS ORDERED: MAGNESIUM HYDROXIDE SUSP 30 ML UDC PO PRN (14:02)
[2023-06-06] MEDS ORDERED: ONDANSETRON INJ 2 MG/ML 2 ML VIAL IV PRN (14:02)
[2023-06-06] MEDS ORDERED: NALOXONE HCL 0.4 MG/1 ML VIAL/CARP IV PRN (14:02)
[2023-06-06] MEDS ORDERED: traMADol HCL 50 MG TABLET PO PRN (14:02)
[2023-06-06] MEDS ORDERED: FLUTICASONE PROPIONATE NA SPR 16 GM BTL NAE PRN (14:02)
[2023-06-06] MEDS ORDERED: ALUMINUM/MAGNESIUM SUSP 30 ML UDC PO PRN (14:02)
[2023-06-06] MEDS ORDERED: bisacodyL 10 MG SUPP PR PRN (14:02)
[2023-06-06] MEDS ORDERED: AZELASTINE HCL 0.1% NASAL 200 SPRAYS/27,400 MCG BTL NAE PRN (14:02)
[2023-06-06] MEDS ORDERED: HYDROmorphone INJ 0.5 MG/0.5 ML SYR IV PRN (14:02)
[2023-06-06] MEDS ORDERED: ARTIFICIAL TEARS OP PRN (14:21)
[2023-06-06] MEDS ORDERED: BETAMETHASONE DIP AUG (DIPROLENE) 0.05% CR 15 GM TUBE EXT PRN (14:29)
[2023-06-06] MEDS: SODIUM CHLORIDE 0.9% 1,000 ML IV SCH (14:34)
[2023-06-06] MEDS: ACETAMINOPHEN 500 MG TAB PO SCH ×2 (14:54→20:13)
[2023-06-06] MEDS: KETOROLAC TROMETHAMINE 15 MG/ML VIAL IV SCH ×2 (14:56→21:50)
[2023-06-06] MEDS: ASCORBIC ACID 500 MG TAB PO SCH (17:54)
[2023-06-06] MEDS: ceFAZolin 1000MG 1,000 MG/7.5 ML SYR IV SCH (18:33)
[2023-06-06] MEDS ORDERED: TRANEXAMIC ACID / 0.7% NACL 1,000 MG/100 ML BAG IV SCH (18:45)
[2023-06-06] MEDS: ASPIRIN 81 MG ECTAB PO SCH (20:14)
[2023-06-06] MEDS: FAMOTIDINE 20 MG TAB PO SCH (20:14)
[2023-06-06] MEDS: DOCUSATE SODIUM 100 MG CAP PO SCH (20:14)
[2023-06-06] MEDS ORDERED: SENNA 8.6 MG TAB PO SCH ×2 (21:00)
[2023-06-07] MEDS: ceFAZolin 1000MG 1,000 MG/7.5 ML SYR IV SCH (01:41)
[2023-06-07] MEDS: SODIUM CHLORIDE 0.9% 1,000 ML IV SCH (01:46)
[2023-06-07] MEDS: KETOROLAC TROMETHAMINE 15 MG/ML VIAL IV SCH (05:34)
[2023-06-07] MEDS ORDERED: LEVOTHYROXINE SODIUM 25 MCG TABLET PO SCH (06:30)
[2023-06-07 06:46] LABS: Hematocrit (blood only) 32.6 % (37.0-47.0); Mean Corpuscular Hemoglobin 30.8 pg (25.0-34.0); Mean Corpuscular Hgb Conc 33.7 g/dL (32.0-36.0); Mean Corpuscular Volume 91.3 fL (80.0-100.0); Mean Platelet Volume 10.9 fL (9.4-12.4); Platelet Count 226 K/uL (130-400); RDW Coefficient of Variation 12.7 % (11.5-14.5); Red Blood Count 3.57 M/uL (4.20-5.40); White Blood Count 12.99 K/ul (4.8-10.8)
[2023-06-07 07:10] LABS: Calcium 8.9 mg/dl (8.6-10.3); Potassium 3.7 mmol/L (3.5-5.1)
[2023-06-07 07:15] LABS: BUN Creatinine Ratio 20.9 (10-20); Est GFR (African American) 68.6 ml/min; Est GFR (Non-African American) 59.2 ml/min
[2023-06-07] MEDS ORDERED: dexAMETHasone 10 MG in SYRINGE 0 ML IV SCH (08:00)
[2023-06-07] MEDS: ASPIRIN 81 MG ECTAB PO SCH (08:19)
[2023-06-07] MEDS: DOCUSATE SODIUM 100 MG CAP PO SCH (08:19)
[2023-06-07] MEDS: FAMOTIDINE 20 MG TAB PO SCH (08:19)
[2023-06-07] MEDS: ASCORBIC ACID 500 MG TAB PO SCH (08:20)
[2023-06-07] MEDS: ACETAMINOPHEN 500 MG TAB PO SCH (08:20)
[2023-06-07] MEDS ORDERED: MULTIVITAMIN TAB PO SCH (09:00)
--- NOTE | 2023-06-07 10:48 | Orthopedic Progress Note ---
Date of Service June 07, 2023 Assessment & Plan (1) Status post right knee replacement: Overall, she is doing quite well today with good pain control to the right knee. She will work with physical therapy later this morning to work on ambulation and range of motion exercises. She is on aspirin for DVT prophylaxis. She can be discharged home later this morning pending physical therapy evaluation. She will follow-up with Dr. Washington in 2 weeks for postoperative care. Subjective Sheeba Weathers was seen and evaluated this morning resting comfortably at bedside in no apparent distress. She notes that her pain is well-controlled to the right knee. She has been up and out of bed without any significant issues. She has yet to work with physical therapy this morning. She denies any other concerns today. Review of Systems All systems reviewed & are unremarkable except as noted in HPI & below. Physical Exam . On physical examination of the right knee, dressings are clean, dry, intact. Her leg is out in full extension. She has active plantarflexion dorsiflexion at the right ankle. +2 DP and PT pulses. Less than 2-second capillary refill. Normal sensation. Neurovascular intact. Results & Data Results & Data Laboratory Results . Diagnostic Findings . Postoperative x-rays of the right knee show prosthesis to be in anatomical alignment with no signs of fracture complication or loosening. PG Care Time/CCT Total # of Minutes Spent Total Time Spent with Patient: Total time spent is greater than 50% in coordination of care (as documented) at patient's floor/unit and/or counseling patient: Coding Level of Care Code 30576 Post Operative Follow-Up Diagnoses Status post right knee replacement Z96.651
--- NOTE | 2023-06-07 10:49 | Discharge Summary ---
Date of Service June 07, 2023 Admission HPI (Per Admitting) . Patient is an 82-year-old female who who now 4 years out or so out from a left knee replacement with persistent right knee pain discomfort. She had a long history of knee problems had her left knee replaced 4 years ago and done well from that. She continues to be bothered by right knee pain discomfort describes gotten worse over time. She developed more of a deformity to her knee. Occasionally gives out on her. She got pain all the time. Increased with weightbearing. She is ready to have her right knee fixed. Admission Exam (Per Admitting) . Physical examination reveals a pleasant elderly female but looks in good health. Examination of the right knee reveals patient walks with a fairly normal gait. She got a slight valgus alignment to her knee which is increased with weightbearing. Small knee effusion. Range of motion 0-1 20. No particular pain with hip motion. She does have significant hindfoot valgus alignment as well with some posterior tibial tendon insufficiency. She is neurovascular intact. Principal Diagnosis Same as "Discharge Diagnosis" noted below under Discharge Instructions. Discharge Exam . On physical examination of the right knee, dressings are clean, dry, intact. Her leg is out in full extension. She has active plantarflexion dorsiflexion at the right ankle. +2 DP and PT pulses. Less than 2-second capillary refill. Normal sensation. Neurovascular intact. Discharge Data Procedures Performed Operation Date: 06/06/23 10:40 Actual Procedures p Right Total Knee Arthroplasty(Right) - Austin Washington MD Ordered Studies 06/06/23 05:00 US - OR guided needle placemen Routine Hospital Course (1) Status post right knee replacement: On June 06, 2023 Sarahy arrived at [facility] and underwent a right total knee arthroplasty performed by Dr. Washington with no complications. She had a spinal anesthetic. Postoperatively, she was started on aspirin for DVT prophylaxis and transferred to the general orthopedic floor in stable condition. Her hospital course was uneventful. On postoperative day #1, her vital signs were stable and her pain was well-controlled. She participated well with physical therapy working on ambulation and range of motion exercises. She was then discharged home in stable condition. She will follow-up with Dr. Washington in 2 weeks for postoperative care. PG Care Time/CCT Total # of Minutes Spent Total Time Spent with Patient: Total time spent is greater than 50% in coordination of care (as documented) at patient's floor/unit and/or counseling patient: Discharge Plan Discharge Items Patient Disposition: Home - Home Health Services Reason For Visit: Right Knee Degenerative Joint Disease Discharge Diagnosis: Right Knee Replacement Activity: Per Instructions section Weightbearing: Full weightbearing Non-emergency contact: Surgeon Call non-emergency contact if: you have any medication questions Follow-up/Referrals: James Cadet DO [Primary Care Provider] - Diet: Regular Addtl Attending Provider Instructions: ACTIVITY RECOMMENDATIONS: Physical Therapy: * You will go to physical therapy three times each week for four to six weeks after your surgery in order to regain your knee range of motion and to retrain your knee to work properly. * It is just as important to make sure you are getting your knee perfectly straight as it is to regain your knee bend. * Taking a pain pill an hour before therapy can help you have a more productive and comfortable therapy session. Home Exercise: * You were shown a series of exercises (heel props, heel slides, etc.) in the hospital. Do these exercises three to four times each day including the exercises you were shown in physical therapy. Walking: * Get up and walk several times each day. For the first four weeks, try not to stand or walk for more than one hour at a time. If you do stand or walk for more than one hour, you will not hurt anything, but your knee and leg will likely swell. * As you feel comfortable, you may change from the walker or crutches to a cane and then to independent walking. MEDICATIONS: New Medicine: * You will likely be taking one or more of these medications: 1. Tramadol - A quick and shorter-acting pain medication. Take one to two tablets every six hours to lessen your pain. 2. Aspirin - Thins your blood to lessen the chance of forming a blood clot. * The most common side effects of pain medicine and iron are nausea and constipation. If nausea or constipation is too much of a problem or if you have any questions about your new medicines or doses, call [facility] at . We will try to help you manage these issues. "VERY IMPORTANT TO READ AND REVIEW" Pain: * The immediate post-operative period after knee replacement surgery is often quite painful. * You are given a prescription for pain medicine. You should take it, as directed, when you need it, especially before physical therapy and before going to bed. Pain that interferes with sleep is very common and can last several months. * You will likely need pain medicine for the first four to six weeks. It will not stop all of the pain. The pain will lessen and as you feel better, you may change to milder pain medicine such as Tylenol. * The most common side effects of pain medicine are nausea and constipation, so don't take more than you need. SPECIAL CARE INSTRUCTIONS: TEDs/Elastic Stockings: * The white elastic stockings help limit swelling and prevent blood clots from forming in your legs. The more you wear them, the more they work. * Wear them for six weeks after knee replacement surgery and four weeks after partial knee replacement. Incision Site Care: * Remove dressing postoperative day 2 and then shower. Keep direct shower pressure off the incision site. * After showering, cover stephen with dry gauze and change daily or more frequently if the dressing is getting saturated with drainage. * Use the CAMMY stockings to hold dressing in place. DO NOT apply tape on the skin. * May completely stop using bandage if wound is dry and no drainage * [place] are removed between 2 and 3 weeks post-op. If your follow-up appointment is made before 2 weeks, please have your appointment re- scheduled. It is too early to remove the stephen. Prevention of Infection: * Take antibiotics one hour before any dental cleaning, dental work, urological procedure, gastrointestinal procedure or any invasive surgery in order to prevent your new joint from getting infected. * You may get the antibiotics from the doctor performing the procedure or you may call our office at [phone] before and we will call in a prescription to the pharmacy of your choice. Things to Watch For: * Drainage from the incision site that occurs more than one week after your surgery. * Severely increased knee/leg pain or swelling. * Increased redness at the incision site. * Fever above 102 degrees Fahrenheit. * Unusual chest pain or shortness of breath. * Unusual pain or burning with urination. Call [facility] at [phone] with any of the above problems or if you have any questions about your medicines or recovery. FOLLOW UP VISIT: Make an appointment to see your doctor for approximately two weeks after surgery for a progress check and staple removal by calling the office at [phone]. Pending Studies at Discharge: No Stand-Alone Forms: My [facility], Smoking Cessation Medications and DC Order Prescriptions: Continued levothyroxine 25 mcg tablet 25 mcg PO QAM Qty: 90 3RF famotidine 20 mg tablet 20 mg PO BID Qty: 180 1RF sennosides [Senokot] 8.6 mg tablet 8.6 mg PO BID 14 Days Qty: 28 0RF Rx Instructions: Take two times a day to prevent/treat constipation tramadol 50 mg tablet 50 - 100 mg PO Q6 PRN (Reason: pain) Qty: 40 0RF Rx Instructions: Take as needed for pain acetaminophen [Tylenol Extra Strength] 500 mg tablet 1,000 mg PO TID 30 Days Qty: 180 0RF Rx Instructions: Take 3 times per day to lessen pain. ketorolac 10 mg tablet 10 mg PO Q8H 5 Days Qty: 15 0RF Rx Instructions: Take 3 times per day with food for 5 days to lessen pain and swelling. ondansetron 4 mg tablet,disintegrating 4 mg PO Q8 PRN (Reason: nausea) Qty: 20 1RF Rx Instructions: Take as needed for nausea aspirin [Mickey Low Dose Aspirin] 81 mg tablet,delayed release (DR/EC) 81 mg PO BID 45 Days Qty: 90 0RF fluticasone propionate [Allergy Relief (fluticasone)] 50 mcg/actuation spray,suspension 2 spray intranasal DAILY PRN (Reason: Congestion) Rx Instructions: administer into each nostril olopatadine 0.2 % drops 1 drp ophthalmic (eye) QPM Patient Comments: both eyes Refresh Relieva 0.5-0.9 % drops 1 drp ophthalmic (eye) BID PRN (Reason: Dry Eye(S)) azelastine 137 mcg (0.1 %) aerosol,spray 137 mcg intranasal ONCE PRN (Reason: Congestion) glucosamine-chondroitin [Osteo Bi-Flex] 250-200 mg tablet 2 tab PO QDL fluocinonide 0.05 % gel 1 applic topical BID PRN (Reason: itching) Qty: 15 0RF Admission Data Admit Date/Time: 06/06/23 12:42 Attending Provider: Austin Washington Admit Provider: Austin Washington Primary Care Provider: James Cadet Other Providers: [facility],Home [facility] Other Interventions: Discharge Summary Assessment (RN) Last Done: 06/07/23 10:20
[2023-06-07] MEDS ORDERED: NON-FORMULARY MEDICATION (Glucosamine-Chondroitin [Osteo Bi-Flex] 250-200 mg tablet) PO SCH (11:30)
== END 2023-06-07 11:48 | disposition home health service (06) ==
LOC: ASU 09:17 → 3E 09:17